=== PATIENT | male | born 2000 | race Two or more races ===

== ENCOUNTER 2020-01-19 17:25 | Emergency (ER) | payer OTHER ==
[~2020-01-19] VITALS: Ht 180.3 cm; Wt 77.1 kg
[2020-01-19 17:25] VITALS: BP 122/64
--- NOTE | 2020-01-19 17:25 | NUR ---
ED Nurse Note: Pt BIBA RA 59 d/t OD of Farmaspram 2.0mg. Based on triage, unk amount taken. 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 Placed on bed and gown; hooked to environmental monitoring technician, VSS, on RA, NAD. Per assessment, pt had a recent alcohol intake prior to OD. Will continue to monitor.
[2020-01-19 18:01] LABS: BASOPHILS % (AUTO) 1.2 % (0.0-2.0); EOSINOPHILS % (AUTO) 2.9 % (0.0-3.0); HEMATOCRIT 42.2 % (42.0-52.0); HEMOGLOBIN 14.4 G/DL (14.2-18.0); LYMPHOCYTES % (AUTO) 28.4 % (20.0-45.0); MEAN CORPUSCULAR VOLUME 89 FL (80-99); NEUTROPHILS % (AUTO) 61.6 % (45.0-75.0); PLATELET COUNT 347 K/UL (150-450); RED BLOOD COUNT 4.71 M/UL (4.70-6.10); RED CELL DISTRIBUTION WIDTH 12.4 % (11.6-14.8); WHITE BLOOD COUNT 6.6 K/UL (4.8-10.8)
[2020-01-19 18:04] LABS: ANION GAP 10 mmol/L (5-15); BLOOD UREA NITROGEN 6 mg/dL (7-18); CALCIUM 8.9 MG/DL (8.5-10.1); CARBON DIOXIDE 30 MMOL/L (21-32); CHLORIDE 102 MMOL/L (98-107); CREATININE 0.8 MG/DL (0.55-1.30); POTASSIUM 3.7 MMOL/L (3.5-5.1); SODIUM 142 MMOL/L (136-145)
[2020-01-19 18:13] LABS: ALANINE AMINOTRANSFERASE 35 U/L (12-78); ALBUMIN 3.9 G/DL (3.4-5.0); ALBUMIN/GLOBULIN RATIO 1.1 (1.0-2.7); ALKALINE PHOSPHATASE 69 U/L (46-116); ASPARTATE AMINO TRANSFERASE 22 U/L (15-37); BILIRUBIN,TOTAL 0.4 MG/DL (0.2-1.0)
--- NOTE | 2020-01-19 18:14 | NUR ---
ED Nurse Note: Accucheck 99mg/dl.
--- NOTE | 2020-01-19 18:19 | Diagnostic Imaging Report ---
. Indications: Altered level of consciousness Technique: Spiral acquisitions obtained through the brain. Angled axial and coronal 5 x 5 mm slices were reconstructed. Total dose length product 1082 mGycm. CTDI vol(s) 53 mGy. Dose reduction achieved using automated exposure control Comparison: None. Findings: No acute intracranial hemorrhage or edema. No mass effect nor midline shift. Normal bobby-white differentiation. Normal size ventricles and extra axial CSF spaces. Intact calvarium. Visualized orbits and sinuses are unremarkable. The mastoids are clear Impression: Negative This agrees with the preliminary interpretation provided overnight by [facility] telerad[facility] service. The CT scanner at [facility] is accredited by the [employer] and the scans are performed using protocols designed to limit radiation exposure to as low as reasonably achievable to attain images of sufficient resolution adequate for diagnostic evaluation.
[2020-01-19 18:41] VITALS: BP 113/65
--- NOTE | 2020-01-19 19:07 | NUR ---
ED Nurse Note: Received report from PEDRO Kim. Reassessed patient, patient resting in bed in stable condition.
--- NOTE | 2020-01-19 19:07 | NUR ---
HAND-OFF: Report given to PEDRO Collins.
[2020-01-19 19:11] LABS: APPEARANCE,URINE CLEAR; BILIRUBIN, URINE NEGATIVE (NEGATIVE); COLOR,URINE PALE YELLOW; GLUCOSE, URINE (UA) NEGATIVE (NEGATIVE); KETONES,URINE NEGATIVE (NEGATIVE); LEUKOCYTE ESTERASE ,URINE NEGATIVE (NEGATIVE); NITRITE,URINE NEGATIVE (NEGATIVE); PH,URINE 7 (4.5-8.0); PROTEIN,URINE NEGATIVE (NEGATIVE); UROBILINOGEN,URINE NORMAL MG/DL (0.0-1.0)
[2020-01-19 19:30] VITALS: BP 122/72
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
[2020-01-19 19:50] VITALS: BP 113/75
--- NOTE | 2020-01-19 19:50 | NUR ---
ER DISCHARGE NOTE: Patient is cleared to be discharged per ERMD, pt is aox4, on room air, with stable vital signs. pt was given dc instructions, pt was able to verbalize understanding, pt id band and iv site removed intact without complications. pt is able to ambulate with steady gait. pt took all belongings. pt stable upon discharge.
--- NOTE | 2020-01-20 12:15 | Diagnostic Imaging Report ---
Indication: Shortness of breath Technique: One view of the chest Comparison: none Findings: Lungs and pleural spaces are clear. Heart size is normal. Impression: No acute process
== END 2020-01-19 19:50 | disposition home or self-care (01) ==
LOC: EDBD 17:25 → EMR 19:28
DX: F13.10 Sedative, hypnotic or anxiolytic abuse, uncomplicated (principal); F12.10 Cannabis abuse, uncomplicated
CPT/HCPCS: 36415; 70450; 71045; 80053; 80307; 81003; 84484; 85025; 93005; 96361; 96374; G0480; G0481; J2405; J7030; Z7502; 99284